=== PATIENT | female | born 1935 | race Caucasian/White ===

== ENCOUNTER 2017-10-24 14:57 | Inpatient (IN) | payer MEDICARE ==
[2017-10-24] MEDS ORDERED: Dextrose 5% in Water 1,000 ML IV PRN (19:43)
[2017-10-24] MEDS ORDERED: Acetaminophen 650 MG Suppository PR PRN (19:43)
[2017-10-24] MEDS ORDERED: Bisacodyl 5 MG TAB PO PRN (19:43)
[2017-10-24] MEDS ORDERED: HumaLOG 300 UNITS/3 ML VIAL SC PRN (19:43)
[2017-10-24] MEDS ORDERED: Acetaminophen 325 MG TAB PO PRN (19:43)
[2017-10-24] MEDS ORDERED: Ondansetron HCl/PF 4 MG/2 ML Vial IVP PRN (19:43)
[2017-10-24] MEDS ORDERED: Dextrose 50% Abboject 50 ML SYRINGE SLOW IVP PRN (19:43)
[2017-10-24] MEDS ORDERED: Ondansetron ODT 4 MG TAB PO PRN (19:43)
[2017-10-24] MEDS: Sodium Chloride 0.9% 1,000 ML IV SCH (20:35)
[2017-10-24] MEDS: Docusate 100 MG CAP PO SCH (20:35)
--- NOTE | 2017-10-24 20:38 | HP ---
PRIMARY CARE PHYSICIAN: Luke Ortiz M.D. CHIEF COMPLAINT: Midepigastric abdominal pain and now sleepiness [facility] HISTORY OF PRESENT ILLNESS: This is an 82-year-old white female with a known history of diabetes, at rial fibrillation with a pacemaker, hypertension, hyperlipidemia who presented to the [facility] Emergency Room with acute pancreatitis a couple weeks ago. The patient was watched in the ospital for about 3 days, had resolution of her pain and has slowly advancing diet. A surgeon was co nsulted there and determined that the patient was at risk with surgery and needed to be cleared by parag r order entry representative to stop her Eliquis. Patient had a recent stroke in August of this year with complet e resolution of her symptoms in a few days, but is on Eliquis for her atrial fibrillation since then. Dr. Kaur is her order entry representative and she was supposed to follow up with Dr. Kaur to get clearance for a scheduled cholecystectomy. Patient, according to family never really gotten better when she went ho co. She did not have pain, but she has always felt like it was something not right in her stomach an d she had very little appetite, is not eaten much or drinking much since and then she had some midepi gastric pain starting last night. It continued this morning, it was fairly severe and so she went to the emergency room in [place]. There her lipase had returned to the 3000 range. She had a repeat C T, which again showed the gallstones and sludge, but no evidence of acute cholecystitis. She had an ultrasound done in the emergency room which showed persistence of stones and sludge in the region of the gallbladder neck, but no thickening, pericholecystic fluid or common bile duct stone identified. The patient was given Phenergan for nausea that she was having and she was having some dry heaves an d then also a dose of Dilaudid. The patient does not like pain medication and does not react well to it. After being given both of these, she became little bit agitated and then became very sleepy and hard to get responses from. She also had some ventricular tachycardia, short nonsustained runs on t he monitor, so she was transferred here for higher level of care. The patient has not had any more r uns of ventricular tachycardia. She has had some hypotension when she arrived. This resolved with a liter of fluid, now she is in the 100 systolic. Still quite sleepy, but starting to respond more pe r the family and I am able to get her to wake up and give me history. Dr. Lujan was consulted from [facility] emergency room, he has not yet seen the patient, but will see them about possible cholecystectomy. PAST MEDICAL HISTORY: 1. Hyperlipidemia. 2. Hypertension. 3. Diabetes mellitus type 2, on oral hypoglycemics. 4. Hypothyroidism. 5. Atrial fibrillation. 6. Carotid stenosis. PAST SURGICAL HISTORY: 1. Rectocele repair. 2. Pacemaker placement. 3. Appendectomy. 4. Biopsy of breath. 5. Tubal ligation. 6. Carotid endarterectomy. 7. D and C. 8. Cataract surgery. SOCIAL HISTORY: The patient denies tobacco or illicit drugs. She only has a rare social alcohol, no thing regular. FAMILY HISTORY: One of her sons has had pancreatitis as well. The patient lives with her , i s accompanying in the emergency room by her 2 daughters and her granddaughter. ALLERGIES: No known drug allergies. CURRENT MEDICATIONS: 1. Carvedilol 6.25 mg in the morning and 12.5 mg at night. 2. Eliquis 5 mg twice a day. 3. Gabapentin 300 mg at night. 4. Levothyroxine 112 mcg p.o. daily. 5. Lovastatin 40 mg p.o. day at night. 6. Metformin 850 mg twice a day. Previously patient was on losartan; however, this was stopped after her first episode of pancreatitis . She was switched to hydrochlorothiazide, but after being nauseated at home, this was stopped as we ll. REVIEW OF SYSTEMS: Constitutional: No fever. She has had some chills, especially after given Dilau did and Phenergan in the emergency room. Eyes: No double vision or blurred vision. ENT: No conges tion, drainage or sore throat. Cardiovascular: No chest pain, no palpitations or racing heart, no s yncope. Pulmonary: No coughing, wheezing or shortness of breath. Gastrointestinal: She has had th e midepigastric pain and was having that again today, it is resolved after the Dilaudid. Still feels uncomfortable in her stomach and was all across the top of her abdomen, it is her only way of descri francis it. No current nausea or vomiting. She did have some nausea and then had some dry heaves earli er this morning before going to the emergency room. No diarrhea or constipation. Genitourinary: No dysuria or hematuria. Musculoskeletal: No muscle aches or joint pains. Skin: No rashes or other lesions. Neurologic: She has not any focal numbness, tingling or weakness. PHYSICAL EXAMINATION: VITAL SIGNS: Blood pressure 102/58, pulse 65, respirations 18, O2 sat 94% on 2 liter nasal cannula, temperature 98.5. GENERAL: This is a well-developed, obese white female who is somnolent but arousable. HEENT: Pupils equal, round, and reactive to light. Extraocular movements intact with some mild hori zontal nystagmus. Oropharynx is clear without lesions, erythema or exudate. NECK: Supple, no lymphadenopathy, no thyroid nodules or enlargement, no JVD. HEART: Regular rate and rhythm, no murmurs, rubs or gallops. LUNGS: Clear to auscultation bilaterally, no wheezes, crackles or rhonchi. ABDOMEN: Soft. Tender to palpation in midepigastric and especially the right upper quadrant. She h as a positive De La Fuente sign. Remainder of the abdomen is uncomfortable, but not painful to palpation. She has active bowel sounds. No organomegaly. EXTREMITIES: No clubbing, cyanosis or edema. SKIN: No rashes or lesions noted. NEUROLOGIC: She has no facial droop and intact reflexes in all extremities and intact strength in al l extremities. PSYCHIATRIC: She is somnolent but arousable, is oriented to person, place, situation and time. PSYCHIATRIC: Appropriate mood and affect. LABORATORY: Reviewed from [facility]. Lipase 3900. The complete metabolic panel was n otable for glucose of 170, creatinine is normal, sodium of 132, chloride 95, bicarbonate 21. Normal bilirubin, normal liver function test, albumin is a little bit low at 3.1. Cardiac marker set negati ve x1. INR is elevated at 1.7. Urinalysis is negative for infection. CBC is notable for white bloo d cell count of 18,000, hemoglobin 11.7, hematocrit 33.8, platelet count 311. She does have a neutro philic predominance of 94%. Blood sugar at the hospital here is 138. ASSESSMENT AND PLAN: 1. Recurrent pancreatitis, likely secondary to gallstones, n.p.o. for now. We will give IV fluids a nd pain control as needed. We will avoid stronger medicines like Dilaudid given patient's bad reacti on to it. 2. Hypotension, likely secondary to Phenergan and Dilaudid as well as probably some underlying volum e depletion. The patient is responding well to IV fluids. We will continue pushing fluids as needed to keep pressure up and replace her volume status. 3. Nonsustained ventricular tachycardia. This is likely secondary to medication effect. We will co nsult Dr. Kaur. The patient will need to have cardiac clearance for surgery as well anyway. 4. Diabetes. We will put the patient on sliding scale. We will hold her metformin for now. 5. Hyperlipidemia. We will resume patient's statin. 6. History of hypertension. The patient currently has low blood pressure. We will hold all of her antihypertensives for now. 7. Gastrointestinal prophylaxis. Put patient on Protonix. 8. Deep venous thrombosis prophylaxis. We will put patient on sequential compression devices while she is in bed. 9. CODE STATUS: I did discuss this with patient and family. She is a FULL CODE. She should she be incapacitated, she states that her daughters would make medical decisions for her that and her daugh ter's name, Tatiana Swain. Her other daughter's name is, Alpa Estrella.
[2017-10-24 20:49] VITALS: BMI 33.7
[2017-10-25 04:39] LABS: #Lymphocytes 0.6 thou/uL (1.20-3.40); #Monocytes 0.8 thou/uL (0.11-0.59); #Neutrophils 13.2 thou/uL (1.40-6.50); %Basophils 0.1 % (0.0-1.0); %Eosinophils 0.2 % (0.0-10.0); %Lymphocytes 4.2 % (21.0-51.0); %Monocytes 5.3 % (0.0-10.0); %Neutrophils 90.2 % (42.0-75.0); Hemoglobin 10.6 g/dL (12.0-16.0); Mean Corpuscular HGB CONC 32.8 g/dL (32.0-36.0); Mean Corpuscular Hemoglobin 31.7 pg (27.0-31.0); Mean Corpuscular Volume 96.7 fl (81.0-99.0); Mean Platelet Volume 6.3 fL (7.4-10.4); Platelet Count 281 thou/uL (130-400); RBC Distribution Width 12.1 % (11.5-14.5); Red Blood Cell (RBC) Count 3.35 mill/uL (4.20-5.40); White Blood Cell (WBC) Count 14.7 thou/uL (4.8-10.8)
[2017-10-25 05:14] LABS: Anion Gap 11 mmol/L (10-20); BUN (Urea Nitrogen) 15 mg/dL (9.8-20.1); Calc. Creatinine Clearance 68 mL/min (70-130); Carbon Dioxide 25 mmol/L (23-31); Chloride 101 mmol/L (98-107); Estimated GFR-MDRD 63; Glucose 150 mg/dL (83-110); Sodium 133 mmol/L (136-145)
[2017-10-25] MEDS: Sodium Chloride 0.9% 1,000 ML IV SCH ×2 (06:12→16:45)
[2017-10-25] MEDS ORDERED: Nitroglycerin 2% Ointment 1 INCH/1 GM Packet TOP SCH ×2 (06:15→14:00)
[2017-10-25] MEDS ORDERED: Levothyroxine Sodium 112 MCG TAB PO SCH (06:15)
[2017-10-25 08:15] LABS: ALT (SGPT) 9 U/L (8-55); AST (SGOT) 15 U/L (5-34); Albumin 2.8 g/dL (3.4-4.8); Alkaline Phosphatase 114 U/L (40-150); Bilirubin, Direct 0.5 mg/dL (0.1-0.3); Bilirubin, Total 0.7 mg/dL (0.2-1.2); Protein, Total 5.7 g/dL (6.0-8.3)
[2017-10-25] MEDS: hydrALAZINE 25 MG TAB PO SCH ×2 (08:52→20:41)
[2017-10-25] MEDS: Docusate 100 MG CAP PO SCH ×2 (08:53→20:42)
--- NOTE | 2017-10-25 09:28 | PDOC.PN ---
- Subjective Encounter Start Date: 10/25/17 Encounter Start Time: 10:50 Subjective: Patient with resolution of sleepiness from Dilaudid. Alert. No -: pain, no nausea, just a "bad" feeling in NICKY and RUQ. - Objective Resuscitation Status: Resuscitation Status FULL:Full Resuscitation MAR Reviewed: Yes Vital Signs & Weight: Vital Signs (12 hours) Temp Pulse Resp BP BP Pulse Ox 10/25/17 08:52 64 220/99 H 10/25/17 05:05 97.6 F 62 20 196/84 H 97 10/25/17 00:00 98.0 F 62 18 166/72 H 93 L Weight Weight 189 lb I&O: 10/24/17 10/25/17 10/26/17 06:59 06:59 06:59 Intake Total 900 Output Total 400 Balance 500 Result Diagrams: 10/25/17 04:03 10/25/17 04:03 Additional Labs: Accuchecks 10/25/17 10/24/17 06:43 20:45 POC Glucose 154 H 177 H Phys Exam - Physical Examination Constitutional: NAD HEENT: moist MMs Respiratory: no wheezing, no rales, no rhonchi, clear to auscultation bilateral Cardiovascular: RRR, no significant murmur Gastrointestinal: soft, positive bowel sounds TTP NICKY and especially RUQ Musculoskeletal: no edema Neurological: non-focal, moves all 4 limbs Psychiatric: normal affect, A&O x 3 Dx/Plan (1) Pancreatitis due to biliary obstruction Code(s): K85.90 - ACUTE PANCREATITIS WITHOUT NECROSIS OR INFECTION, UNSP; K83.1 - OBSTRUCTION OF BILE DUCT Status: Acute Qualifiers: Chronicity: acute Comment: NPO, IV fluids, GI consulted (2) Cholelithiasis Code(s): K80.20 - CALCULUS OF GALLBLADDER W/O CHOLECYSTITIS W/O OBSTRUCTION Status: Chronic Qualifiers: Cholelithiasis location: gallbladder Comment: Dr. Lujan consulted (3) Diabetes mellitus type 2 in obese Code(s): E11.69 - TYPE 2 DIABETES MELLITUS WITH OTHER SPECIFIED COMPLICATION; E66.9 - OBESITY, UNSPECIFIED Status: Chronic (4) Hypertension Code(s): I10 - ESSENTIAL (PRIMARY) HYPERTENSION Status: Chronic Qualifiers: Hypertension type: essential hypertension Qualified Code(s): I10 - Essential (primary) hypertension Comment: Severely elevated this AM, will need to resume home BP meds, IV prn meds until can take po (5) Hyperlipidemia Code(s): E78.5 - HYPERLIPIDEMIA, UNSPECIFIED Status: Chronic Qualifiers: Hyperlipidemia type: unspecified Qualified Code(s): E78.5 - Hyperlipidemia , unspecified (6) Hypothyroidism Code(s): E03.9 - HYPOTHYROIDISM, UNSPECIFIED Status: Chronic (7) Atrial fibrillation Code(s): I48.91 - UNSPECIFIED ATRIAL FIBRILLATION Status: Chronic Qualifiers: Atrial fibrillation type: chronic Qualified Code(s): I48.2 - Chronic atrial fibrillation Comment: on Eliquis 5mg BID, will need to hold before any surgery (8) CVA (cerebral vascular accident) Code(s): I63.9 - CEREBRAL INFARCTION, UNSPECIFIED Status: Chronic Qualifiers: CVA mechanism: embolism Comment: 08/2017, no residual - Plan cont current plan of care, PT/OT, DVT proph w/lovenox * . - Discharge Day Encounter end time: 11:00
[2017-10-25] MEDS ORDERED: hydrALAZINE 20 MG/ML VIAL SLOW IVP PRN (09:35)
[2017-10-25] MEDS ORDERED: Labetalol HCl 100 MG/20 ML VIAL SLOW IVP PRN (09:35)
[2017-10-25] MEDS ORDERED: Enoxaparin Sodium 40 MG/0.4 ML SYRINGE SC SCH (10:00)
--- NOTE | 2017-10-25 14:13 | CON ---
DATE OF CONSULTATION: 10/25/2017 CHIEF COMPLAINT: Right upper quadrant pain. HISTORY: This is an 82-year-old female who on 10/11 had presented with severe right upper quadrant p ain to the [facility] ER. She was admitted with biliary pancreatitis. She was placed at bowel rest and then discharged feeling better. Then she reports that yesterday she had a repeat episode of the pain and it became much worse, so she went back to the ER and there she had an episode of ventri cular tachycardia after being given some pain medicine and antiemetics. They were able to resuscitat e her and they transferred her here, but on the way here, she had an episode of hypotension. PAST MEDICAL HISTORY: Significant for recent cerebrovascular accident on 08/30/2017. She was aphasi c and had right-sided weakness that has resolved. She has hypertension, diabetes, and atrial fibrill ation as well as carotid disease. PAST SURGICAL HISTORY: She has had a pacemaker. She has had a colonoscopy, appendectomy, breast bio psy, bilateral tubal ligation. She has had a bilateral carotid endarterectomy, D and C, cataract arturo malorie. MEDICATIONS: Carvedilol, Eliquis, gabapentin, levothyroxine, lovastatin, metformin. SOCIAL HISTORY: No tobacco, social alcohol. FAMILY HISTORY: Pancreatitis. ALLERGIES: She has no known drug allergies. PHYSICAL EXAMINATION: VITAL SIGNS: Temperature 97.9, pulse 73, blood pressure 205/96. GENERAL: She is awake and alert. She says the pain is little better than it was yesterday, but she is still having quite a bit of discomfort. There is no obvious jaundice. LUNGS: Clear. HEART: Regular rate and rhythm. ABDOMEN: Mildly tender in the right upper quadrant, no palpable mass. EXTREMITIES: Unremarkable. LABORATORY AND X-RAY FINDINGS: Her white count is 14,000, H and H 10 and 32, platelet count 282. El ectrolytes show an elevated glucose at 150. Her total bilirubin of 0.7. LFTs are normal, but her am ylase is 747. She had a CT scan showing pancreatitis. She had an ultrasound. This is reported in [facility] ER notes, so I do not have direct reports of gallstones from the hospital in [place]. ASSESSMENT: Biliary pancreatitis, not cleared for surgery at this time with multiple other medical p benny. She has been off her Eliquis for a day and a half. PLAN: Cardiac clearance. Recommend GI consultation followed by laparoscopic cholecystectomy.
--- NOTE | 2017-10-25 16:05 | CON ---
DATE OF ADMISSION: 10/24/2017 DATE OF CONSULTATION: 10/25/2017 INDICATION FOR CONSULTATION: An 82-year-old female who needs to undergo surgical procedure, most lik lynn for cholecystectomy. We were asked to see her due to her history of intermittent atrial fibrilla tion, history of pacemaker insertion, history of diastolic dysfunction. HISTORY OF PRESENT ILLNESS: This very pleasant 82-year-old female who had a history in the past of a trial fibrillation. She had decided not to take anticoagulation and unfortunately in August, she de veloped cerebrovascular accident with aphasia and right-sided weakness. She was seen at [facility] in [place] and was given TPA and suffered only minimal damage. The brain CT cannot confirm t he origin of the stroke. She has a pacemaker and she could not undergo an MRI. Her echocardiogram a t that time showed an ejection fraction around 20%, but this did improve and today echocardiogram brandyn ws ejection fraction of 50%-55% with mild mitral and tricuspid, aortic and pulmonary valve regurgitat ion. She does have evidence of diastolic dysfunction. We have interrogated the pacemaker which show ed less than 1% atrial fibrillation burden. Her last atrial fibrillation was on 09/12/2017. She als o was noted on the evaluation of the pacemaker as of yesterday of 28 seconds. The longest was 28 sec onds of nonsustained ventricular tachycardia. This occurred yesterday morning around 11:30-11:40 in the morning. The majority of time she has atrial pacing and ventricular pacing actually about 98.7% of the time. She did have several frequent episodes of the nonsustained ventricular tachycardia of t hese was between 11:36 and 11:40 in the morning in a very short period of time and she has not had an y other episodes and she has had no significant episodes noted prior to this or since that time. She denied any chest discomfort. She has had no history of coronary artery disease in the past. She callahan s not undergone cardiac catheterization. Last time when she was seen in the office was 08/2017 and s he was not having any complaints of orthopnea, PND or dyspnea on exertion or lower extremity edema. She did not have any palpitations or syncope and was doing quite well at that time. PAST MEDICAL HISTORY: Significant for dyslipidemia, history of hypertension, she has had a TIA, slee p apnea, bilateral carotid endarterectomies, bilateral tubal ligation. She has diverticulitis. She has had a thyroid goiter. She has hypothyroidism. She has type 2 diabetes. She has undergone pacem albertina insertion. She has a history of cataract surgery. She has had a history of a CVA. ALLERGIES: None. PRESENT MEDICATIONS PRIOR TO ADMISSION: Included garlic capsules, fish oil, vitamin D3, lovastatin, Centrum Silver vitamins, Tirosint, gabapentin, metformin, cinnamon, CoQ10, aspirin 81 mg a day, amiod arone 200 mg 1 b.i.d., Coreg 6.25 mg b.i.d. FAMILY HISTORY: Noncontributory. REVIEW OF SYSTEMS: Twelve point review of systems. She denied any new HEENT complaints, no visual c hanges. Respiratory: No pulmonary complaints such as asthma, emphysema, bronchitis or significant s hortness of breath or dyspnea on exertion. Cardiovascular: She had no cardiac complaints such as ch est pain, shortness of breath, lower extremity edema, palpitations or chest pain. Gastrointestinal: She had no nausea, vomiting or diarrhea. She did complain of abdominal pain. This is what brought her to the emergency room on two different occasions now and appears that she has some cholecystitis and now also developed pancreatitis. Genitourinary: She denies any dysuria, polyuria, or hematuria. Musculoskeletal: No significant lower extremity edema, swelling, or claudication. Neurological: No history of seizures or syncope. PHYSICAL EXAMINATION: GENERAL: Reveals a well-developed, well-nourished female who is in no acute distress. She is alert and oriented at this time. VITAL SIGNS: Stable except for blood pressure. She is somewhat hypertensive. Her blood pressure wi ll need to be managed. Last checked was 205/96. She has been started on hydralazine, but has not be en given her oral medications. We will need to adjust the medications in order to decrease the blood pressure. Heart rate in the 70s, which shows 100% AV pacing. She is afebrile, respiratory rate is 20. HEENT: Shows the head to be normocephalic and atraumatic. She has well healed surgical incision of the carotid areas. I did not hear any significant bruits. CHEST: Clear to auscultation without rales, rhonchi or wheezing. CARDIOVASCULAR: Exam reveals a regular rate and rhythm. She has a normal S1, S2. No significant S3 , S4. There were no significant murmurs, heaves, thrills, bruits or rubs. She has well healed surgi paramjit incision over the left interventricular area after pacemaker insertion. EXTREMITIES: Show no clubbing, cyanosis or edema. Pedal pulses are present. NEUROLOGIC: The patient appears to be fully intact. I cannot elicit any gross focal motor deficits. SKIN: Warm and dry. LABORATORY DATA: Shows WBC of 14.7, hemoglobin was 10.6, platelet count was 281. Potassium is 4.1, sodium is 133, blood sugar is 153, BUN is 15 with a creatinine of 0.86. Her AST was 15 with an amyla se of 747, total bilirubin was 0.7. IMPRESSION: 1. Acute cholecystitis with pancreatitis, most likely she will need to undergo a cholecystectomy and possibly ERCP. At this time, the cardiac status despite having some short runs of nonsustained vent ricular tachycardia, most likely is reasonable to undergo the procedure. She most likely has mild to moderate risk for any acute cardiac events during the procedure. She has not had a recent stress te st, but echocardiogram shows a normal ejection fraction and she has had no significant complaints rec ently from a cardiac standpoint. Her last stress test was many years ago. 2. History of most likely diastolic dysfunction with restrictive type pattern and a decreased ejecti on fraction in the past and this appears to be stable at this time with ejection fraction at least 50 %-55% today by echocardiogram. 3. History of pacemaker insertion due to sick sinus syndrome. This remains stable. The pacemaker f unction is normal. 4. History of intermittent atrial fibrillation. Her last atrial fibrillation was 09/12/2017. She h as been on Eliquis since that time to decrease the risk of a cerebrovascular accident which she suffe red back in August. At this time, we can certainly hold the anticoagulation. It is for the surgica l procedures and then can resume these after the procedure as soon as feasible. 5. Nonsustained ventricular tachycardia. She certainly may have underlying coronary artery disease, but does not give any other symptoms of having coronary artery disease at this time and I do not bel ieve I will benefit the patient to undergo a stress test at this time since she has minimal symptoms prior to undergoing the surgical procedure. If this were a major vascular procedure or retroperitone al type procedure, or major alone procedure, then perhaps a stress test would be in order if at all p ossible prior to the procedure, but for a cholecystectomy and possible ERCP, I do not believe this wi ll be indicated at this time.
[2017-10-25] MEDS: Carvedilol 6.25 MG TAB PO SCH ×2 (16:41→20:42)
[2017-10-25] MEDS: Piperacillin/Tazobactam 3.375 GM in Sodium Chloride 0.9% 100 ML IVPB SCH ×2 (16:45→20:41)
[2017-10-25] MEDS: cloNIDine 0.1 MG TAB PO PRN (19:18)
[2017-10-25] MEDS: Nitroglycerin 2% Ointment 1 INCH/1 GM Packet TOP SCH (20:42)
[2017-10-25] MEDS: Atorvastatin Calcium 10 MG TAB PO SCH (20:42)
--- NOTE | 2017-10-25 21:29 | CON ---
DATE OF CONSULTATION: 10/25/2017 HISTORY OF PRESENT ILLNESS: This is an 82-year-old female who was in her normal state of h ealth until a week to 10 days prior to admission when she developed a severe abdominal pain. She kitty t to [facility] in [place] and was diagnosed with pancreatitis. She was hospitalized for 3 days and reportedly as far as her pancreatic numbers normalized, she felt better and was sent home . Over the subsequent week, she still was not feeling normally and then she developed another episod e of severe pain. She did have nausea, vomiting during these painful episodes. She returned to the emergency room and there she was diagnosed with recurrent pancreatitis and with lipase levels in the 3900 range. She was transferred here. She did have an episode of V-tach during this time period. O n 10/11/2017, the patient underwent a CT scan which showed mild acute uncomplicated pancreatitis, whi ch is likely secondary to gallstones. Gallstones were in the gallbladder neck. Ultrasound showed no ductal dilatation, common bile duct to 2.1 mm. No common duct stone is seen. Gallbladder is mildly distended with debris and stone in the gallbladder neck. The patient is presently pain free. She d enies any nausea or vomiting. She is actually hungry. PAST MEDICAL HISTORY: Significant for hyperlipidemia; hypertension; diabetes mellitus; cerebrovascul ar accident; hypothyroidism; atrial fibrillation, on Eliquis. PAST SURGICAL HISTORY: Includes rectocele repair, pacemaker placement for bradycardia, appendectomy, tubal ligation, bilateral carotid endarterectomies, cataract surgery. SOCIAL HISTORY: She does not smoke or drink. FAMILY HISTORY: Negative for GI or liver disease. ALLERGIES: No known allergies. MEDICATIONS: Prior to admission include hydralazine 25 mg p.o. b.i.d., Lovastatin 40 mg p.o. daily, metformin 850 mg p.o. b.i.d., Coreg 6.25 mg p.o. t.i.d., levothyroxine 112 mcg p.o. daily, gabapentin 300 mg p.o. daily, Eliquis 5 mg p.o. b.i.d. REVIEW OF SYSTEMS: Constitutional: No fever or chills. No weight loss. Eyes: No blurred vision, double vision. ENT: No sore throat or earaches. Cardiovascular: No chest pain or palpitation. Pu lmonary: No shortness of breath, cough, or wheezing. Gastrointestinal: See above. Genitourinary: No hematuria or dysuria. Musculoskeletal: No joint pain or muscle weakness. Neurologic: No numbn ess or seizure activity. Skin: No rashes. PHYSICAL EXAMINATION: VITAL SIGNS: Temperature 98.9, pulse 60, respiratory rate 20, blood pressure 226/94. HEENT: Unremarkable. NECK: Supple. CHEST: Clear. CARDIOVASCULAR: Regular rate and rhythm without murmurs or gallops. ABDOMEN: Soft, nontender, without organomegaly or masses. Bowel sounds are present and normoactive. RECTAL: Deferred. LABORATORY: Shows a white blood cell count of 14.7, hematocrit of 32.4, hemoglobin 10.6. Chemistry shows sodium 133, glucose 150, total bilirubin 0.7, AST and ALT are normal, alkaline phosphatase 114, amylase of 747, and lipase of 889. ASSESSMENT: 1. Probable biliary pancreatitis. 2. Cholelithiasis in the gallbladder neck. 3. Atrial fibrillation, on Eliquis. 4. Episode of ventricular tachycardia. RECOMMENDATIONS: 1. At this time, I would proceed with cholecystectomy. I would not at this time perform ERCP parulaus e the patient's LFTs are normal. She has a very small duct. 2. We will discuss with Dr. Kaur.
[2017-10-26] MEDS: Piperacillin/Tazobactam 3.375 GM in Sodium Chloride 0.9% 100 ML IVPB SCH ×4 (04:10→20:16)
[2017-10-26 05:19] LABS: Anion Gap 15 mmol/L (10-20); BUN (Urea Nitrogen) 17 mg/dL (9.8-20.1); Calc. Creatinine Clearance 71 mL/min (70-130); Calcium 8.7 mg/dL (7.8-10.44); Carbon Dioxide 19 mmol/L (23-31); Chloride 103 mmol/L (98-107); Estimated GFR-MDRD 68; Glucose 148 mg/dL (83-110); Lipase 559 U/L (8-78); Potassium 4.3 mmol/L (3.5-5.1); Sodium 133 mmol/L (136-145)
[2017-10-26 05:49] LABS: Band 30 % (5-11); Hemoglobin 9.8 g/dL (12.0-16.0); Lymphocytes 3 % (21-51); MDiff Complete? YES; Mean Corpuscular Hemoglobin 31.8 pg (27.0-31.0); Mean Corpuscular Volume 96.5 fl (81.0-99.0); Mean Platelet Volume 6.5 fL (7.4-10.4); Monocytes 2 % (0-10); Neutrophil 65 % (42-75); Platelet Count 293 thou/uL (130-400); RBC Distribution Width 12.1 % (11.5-14.5); Red Blood Cell (RBC) Count 3.09 mill/uL (4.20-5.40); White Blood Cell (WBC) Count 13.4 thou/uL (4.8-10.8)
[2017-10-26] MEDS: Sodium Chloride 0.9% 1,000 ML IV SCH ×2 (05:49→19:30)
[2017-10-26] MEDS: Nitroglycerin 2% Ointment 1 INCH/1 GM Packet TOP SCH ×3 (05:50→20:17)
[2017-10-26] MEDS: Levothyroxine Sodium 112 MCG TAB PO SCH (05:50)
[2017-10-26] MEDS: hydrALAZINE 25 MG TAB PO SCH ×2 (08:36→20:16)
[2017-10-26] MEDS: Carvedilol 6.25 MG TAB PO SCH ×3 (08:37→20:16)
[2017-10-26] MEDS: Gabapentin 300 MG CAP PO SCH (08:38)
[2017-10-26] MEDS: Docusate 100 MG CAP PO SCH ×2 (08:45→20:26)
--- NOTE | 2017-10-26 10:04 | PDOC.PN ---
- Subjective Encounter Start Date: 10/26/17 Encounter Start Time: 19:00 Subjective: Patient back from lap erum. Sleepy. No pain currently. No SOB. No N /V. - Objective Resuscitation Status: Resuscitation Status FULL:Full Resuscitation MAR Reviewed: Yes Vital Signs & Weight: Vital Signs (12 hours) Temp Pulse Resp BP BP Pulse Ox 10/26/17 08:36 63 208/90 H 10/26/17 04:14 97.4 F L 67 16 168/72 H 90 L 10/26/17 00:00 99.4 F 67 17 152/70 H 93 L Weight Weight 191 lb I&O: 10/25/17 10/26/17 10/27/17 06:59 06:59 06:59 Intake Total 900 1575 Output Total 400 500 Balance 500 1075 Result Diagrams: 10/26/17 04:12 10/26/17 04:12 Additional Labs: Accuchecks 10/26/17 10/25/17 10/25/17 05:51 20:37 16:03 POC Glucose 158 H 153 H 157 H 10/25/17 11:59 POC Glucose 153 H Phys Exam - Physical Examination Constitutional: NAD HEENT: moist MMs Respiratory: no wheezing, no rales, no rhonchi, clear to auscultation bilateral Cardiovascular: RRR, no significant murmur Gastrointestinal: soft, no distention, positive bowel sounds Neurological: non-focal, moves all 4 limbs Psychiatric: normal affect, A&O x 3 Dx/Plan (1) Pancreatitis due to biliary obstruction Code(s): K85.90 - ACUTE PANCREATITIS WITHOUT NECROSIS OR INFECTION, UNSP; K83.1 - OBSTRUCTION OF BILE DUCT Status: Acute Qualifiers: Chronicity: acute Comment: NPO, IV fluids, question of cancer on lap erum (2) Cholelithiasis Code(s): K80.20 - CALCULUS OF GALLBLADDER W/O CHOLECYSTITIS W/O OBSTRUCTION Status: Chronic Qualifiers: Cholelithiasis location: gallbladder Comment: s/p Lap Erum by Dr. Zavala 10/26/2017 (3) Diabetes mellitus type 2 in obese Code(s): E11.69 - TYPE 2 DIABETES MELLITUS WITH OTHER SPECIFIED COMPLICATION; E66.9 - OBESITY, UNSPECIFIED Status: Chronic (4) Hypertension Code(s): I10 - ESSENTIAL (PRIMARY) HYPERTENSION Status: Chronic Qualifiers: Hypertension type: essential hypertension Qualified Code(s): I10 - Essential (primary) hypertension Comment: Severely elevated this AM, will need to resume home BP meds, IV prn meds until can take po (5) Hyperlipidemia Code(s): E78.5 - HYPERLIPIDEMIA, UNSPECIFIED Status: Chronic Qualifiers: Hyperlipidemia type: unspecified Qualified Code(s): E78.5 - Hyperlipidemia , unspecified (6) Hypothyroidism Code(s): E03.9 - HYPOTHYROIDISM, UNSPECIFIED Status: Chronic (7) Atrial fibrillation Code(s): I48.91 - UNSPECIFIED ATRIAL FIBRILLATION Status: Chronic Qualifiers: Atrial fibrillation type: chronic Qualified Code(s): I48.2 - Chronic atrial fibrillation Comment: on Eliquis 5mg BID, will need to hold before any surgery (8) CVA (cerebral vascular accident) Code(s): I63.9 - CEREBRAL INFARCTION, UNSPECIFIED Status: Chronic Qualifiers: CVA mechanism: embolism Comment: 08/2017, no residual - Plan cont current plan of care, PT/OT, DVT proph w/SCDs CT abdomen in AM to better evaluate pancreas for possible -: cancer. * . - Discharge Day Encounter end time: 19:20
[2017-10-26] MEDS: cloNIDine 0.1 MG TAB PO PRN (10:40)
[2017-10-26] MEDS: Enoxaparin Sodium 40 MG/0.4 ML SYRINGE SC SCH (10:55)
--- NOTE | 2017-10-26 12:35 | PRG ---
DATE OF SERVICE: 10/26/2017 SUBJECTIVE: The patient is without any pain, no nausea or vomiting. OBJECTIVE: VITAL SIGNS: Temperature 98.9, pulse 63, blood pressure 180/72, respiratory rate 16. CHEST: Clear. CARDIOVASCULAR: Regular rate and rhythm. ABDOMEN: Benign. LABORATORY DATA: Shows a white blood cell count 13.4, hemoglobin 9.8, hematocrit 29.8. Chemistries show a sodium 133, CO2 of 19, glucose 148, lipase 559. ASSESSMENT: Biliary pancreatitis. RECOMMENDATIONS: Proceed with cholecystectomy with intraoperative cholangiogram.
[2017-10-26] MEDS ORDERED: Midazolam HCl 2 mg/2 ml Vial ONE (13:03)
[2017-10-26] MEDS ORDERED: Fentanyl 250 MCG/5 ML VIAL ONE (13:03)
[2017-10-26] MEDS ORDERED: HYDROmorphone 0.5 MG/0.5 ML SYRINGE ONE (13:03)
[2017-10-26] MEDS ORDERED: Iothalamate Meglumine 60% 50 ML VIAL FS ONE (13:48)
[2017-10-26] MEDS ORDERED: Bupivacaine/Epinephrine 0.25% 30 ML VIAL ONE (13:48)
[2017-10-26] MEDS ORDERED: Lidocaine 1% PF 5 ML VIAL ONE (15:17)
[2017-10-26] MEDS ORDERED: Ondansetron HCl/PF 4 MG/2 ML Vial ONE (15:17)
[2017-10-26] MEDS ORDERED: Propofol 200 MG/20 ML VIAL ONE (15:17)
[2017-10-26] MEDS ORDERED: ePHEDrine/0.9% NaCl/PF SYRINGE 50 mg/10 ml ONE (15:17)
[2017-10-26] MEDS ORDERED: PHENYLEPHRINE-NS 100 MCG/ML 10 ML SYRINGE ONE (15:17)
[2017-10-26] MEDS ORDERED: SUGAMMADEX SODIUM 200 MG/2 ML VIAL ONE (15:47)
[2017-10-26] MEDS ORDERED: Promethazine HCl 25 MG/ML VIAL IM PRN (16:25)
[2017-10-26] MEDS ORDERED: Promethazine HCl 25 MG/ML VIAL SLOW IVP PRN (16:25)
[2017-10-26] MEDS ORDERED: Ondansetron HCl/PF 4 MG/2 ML Vial IVP PRN (16:25)
--- NOTE | 2017-10-26 16:34 | OP ---
DATE OF OPERATION: 10/26/2017 PREOPERATIVE DIAGNOSES: 1. Acute cholecystitis. 2. Resolved acute gallstone pancreatitis. POSTOPERATIVE DIAGNOSES: 1. Acute cholecystitis. 2. Resolved acute gallstone pancreatitis. 3. Abnormal architecture of the pancreatic head and duodenum. PROCEDURES PERFORMED: Laparoscopic cholecystectomy with intraoperative cholangiogram. SURGEON: Brain Zavala D.O. ANESTHESIA: General endotracheal. ESTIMATED BLOOD LOSS: 10 mL FLUIDS GIVEN: 1500 mL crystalloids. SPONGE AND INSTRUMENT COUNT: Certified as correct x2. COMPLICATIONS: None apparent. INDICATIONS FOR PROCEDURE: This is an 82-year-old woman, who presented with malaise. She is complaining of abdominal pain. Clinical and radiographic examination was consistent with acute pa ncreatitis, which was suspected to be gallstone pancreatitis. Pancreatitis has since resolved. The patient had no abdominal pain this morning. ERCP was initially proposed; however, due to resolution of abdominal pain and normal LFTs, decision was made therefore to bring the patient to the operating room for laparoscopic cholecystectomy with intraoperative cholangiogram. FINDINGS: Findings today are consistent with a distended gallbladder in the usual anatomic location, completely encased by omental adhesions. Additional findings included fullness and hardness of the pancreatic head and duodenum. Additionally, a cholangiogram reveals a sharp cutoff on the ampulla; h owever, the pancreatic duct filled with contrast. We did not visualize contrast into the small bowel . DESCRIPTION OF PROCEDURE: Informed consent obtained from the patient, who was brought to the operati ng room and placed in supine position. Following general anesthesia, Scruggs catheter inserted and augusto lu at bedside drain. Abdomen was sterilely prepped and draped in usual fashion. Skin below the umb ilicus was infiltrated with 0.25% Marcaine with epinephrine. A small curvilinear infraumbilical inci gema is made using 11 scalpel. Umbilical stalk was grasped with Margareth and elevated. Veress needle was inserted through this incision and placed in the peritoneal cavity, through which the abdomen was insufflated with 3 liters of CO2 gas. Intraabdominal pressure was noted at 2 mmHg. Following abdom inal insufflation, Veress needle was removed, and a 5 mm trocar inserted using the Visiport under lap aroscopy. Laparoscopy confirmed proper placement of the port, no injuries to underlying structures. Additional laparoscopy confirmed gallbladder in the usual anatomic location, completely encased by o mental adhesions. Under laparoscopy, a 12 mm epigastric and two 5 mm right lateral subcostal ports w ere placed after the overlying skin was infiltrated with 0.25% Marcaine with epinephrine, and appropr iate incisions made. The patient is placed in the reverse Trendelenburg position, rotated to her lef t. I introduced the [place] dissector with cautery, using this to take down omental adhesions to ex pose the fundus of the gallbladder. I attempted to grasp the fundus of the gallbladder with a Fly Fishing Hunteri ge grasper from the right lateral subcostal port. This gallbladder was markedly distended and tense and difficult to grasp. We then performed a cholecystotomy at the fundus of the gallbladder using a suction cautery catheter. Excess bile was evacuated. I then applied a Prestige grasper at the fundu s of the gallbladder, which was elevated cephalad. Omental adhesions were then taken down from the r emainder of the gallbladder. A second Prestige grasper was introduced through the right medial subco stal port grasping the Gamez's pouch, which was retracted laterally. An anterior coursing cystic a rtery was dissected free from surrounding structures and divided between clips. Two clips applied pr oximally and 1 clip at the junction of the cystic artery and gallbladder. The cystic duct was dissec idalmis free from surrounding structures. I applied one clip at the junction of the cystic duct and gall bladder. I then introduced a cholangiocatheter in the right upper quadrant. I used an EndoShears to perform a cystotomy of the cystic duct. This was proximal to the securing clip. I inserted the cho langiocatheter after it has been flushed with saline. Catheter was inserted into the cystic ductal l umen and secured with a single clip. Cholangiogram was performed with a total of 40 mL of Conray con trast dye. Cholangiogram did not reveal any filling defects suggestive of stone. However, there is a sharp cutoff at the ampulla. The pancreatic duct, however, was filled. I did not see contrast int o the small bowel. Total fluoroscopy time was 39 seconds. The securing clip was removed, and the ca theter was removed from the abdominal cavity. The cystic duct was then divided between clips, applyi ng two clips proximally. The gallbladder surface removed from the liver bed using cautery and delive red off the abdominal cavity using an EndoCatch. Operative site was copiously irrigated clear with s sheldon. All clips remain in place. I then explored the operative site. The stomach is of normal con tour on palpation with a grasper; however, the pylorus including the proximal duodenum felt hard to t ouch with a grasper. The pancreatic head appeared to be full in the area. This was obviously a not abnormal architecture. Additional laparoscopy was terminated at this time. Fascia of the epigastric port site was closed using 0 Vicryl suture and Endo closure device under laparoscopy. Abdomen was d esufflated. All ports and instruments removed and accounted for. Skin incisions were closed using 4 -0 Monocryl suture in subcuticular fashion. Dermabond was applied over the incisions. The patient t olerated this operation without any apparent complication and was returned to the recovery room in sa tisfactory condition.
[2017-10-26 16:50] LABS: Bilirubin Moderate (Negative); Blood, Urine Negative (Negative); Clarity CLOUDY (Clear); Glucose, Urine (Dipstick) Negative (Negative); Leukocyte Negative (Negative); Nitrite Negative (Negative); Protein, Urine (Dipstick) 30 mg/dL (Neg-Trace)
[2017-10-26 16:51] LABS: Pathc Cast-AUWi Flag 1.76 (0-2.49); RBC/HPF 0-3 HPF (0-3)
[2017-10-26 16:55] LABS: Yeast-AUWi Flag 492.4 (0-25.0)
[2017-10-26 17:03] LABS: Bacteria/HPF 1+ HPF (None Seen); Hyaline Casts/LPF 0-3 HYALINE CAST LPF (0-3 Hyaline); Renal Epithelial None Seen HPF (0-3); Transitional Epithelial 0-3 HPF (0-3); Yeast-All Forms 2+ HPF (None Seen)
[2017-10-26] MEDS ORDERED: Acetaminophen 1,000 MG in Premix Bag 1 BAG IVPB SCH ×4 (18:00)
[2017-10-26] MEDS: Atorvastatin Calcium 10 MG TAB PO SCH (20:16)
--- NOTE | 2017-10-26 21:14 | RAD ---
INTRAOPERATIVE CHOLANGIOGRAM: 10/26/17 COMPARISON: None. HISTORY: Intraoperative cholangiogram. FINDINGS: There is contrast media within the cystic duct and the common bile duct. The common bile duct appears dilated. The common bile duct demonstrates abrupt cut off distally with no filling to the level of t he ampulla of Vater. There appears to be filling of the pancreatic duct which is irregular. IMPRESSION: The common bile duct is not completely filled distally suggesting abrupt cut off on the basis of poss ible pancreatic mass lesion. Opacified pancreatic duct demonstrates diffuse irregularity. Recommend C T examination of the abdomen for further assessment of possible mass lesion in the region of the panc reatic head. Dr Sandoval discussed these findings with Dr. Zavala on 10/26/2017. POS: [facility]
[2017-10-26] MEDS: Acetaminophen 1,000 MG in Premix Bag 1 BAG IVPB SCH (23:29)
--- NOTE | 2017-10-26 23:33 | PRG ---
DATE OF SERVICE: 10/26/2017 SUBJECTIVE: This is an 82-year-old female, who is postop day 0, status post laparoscopic cholecystec azucena and IOC. The patient is being evaluated postoperatively. Upon my evaluation, she is resting in bed in no acute distress and vocalizes no complaint. She is tolerating a clear liquid diet. Pain i s controlled. OBJECTIVE: VITAL SIGNS: Reviewed. The patient is hypertensive, but otherwise stable. Breathing is nonlabored, resting in bed, in no acute distress. ABDOMEN: Soft, nontender, nondistended. NEUROLOGIC: No focal deficit is noted. ASSESSMENT AND PLAN: Postoperative day 0 status post laparoscopic cholecystectomy with filling abnor mality during intraoperative cholangiography as well as the finding of abnormal architecture of the p ancreatic head and duodenum. Patient is tolerating her clear liquid diet. We will follow up postope rative pathology. Supportive care overnight as ordered. Continue to monitor.
[2017-10-27] MEDS: Piperacillin/Tazobactam 3.375 GM in Sodium Chloride 0.9% 100 ML IVPB SCH ×4 (04:08→21:07)
[2017-10-27 04:52] LABS: #Eosinphils 0.1 thou/uL (0.0-0.7); #Lymphocytes 0.6 thou/uL (1.20-3.40); #Monocytes 0.5 thou/uL (0.11-0.59); #Neutrophils 8.3 thou/uL (1.40-6.50); %Eosinophils 0.8 % (0.0-10.0); %Lymphocytes 6.3 % (21.0-51.0); %Monocytes 5.2 % (0.0-10.0); %Neutrophils 87.6 % (42.0-75.0); Mean Corpuscular HGB CONC 32.9 g/dL (32.0-36.0); Mean Corpuscular Hemoglobin 32.2 pg (27.0-31.0); Mean Corpuscular Volume 97.9 fl (81.0-99.0); Mean Platelet Volume 6.4 fL (7.4-10.4); Platelet Count 279 thou/uL (130-400); RBC Distribution Width 12.3 % (11.5-14.5); Red Blood Cell (RBC) Count 3.09 mill/uL (4.20-5.40); White Blood Cell (WBC) Count 9.4 thou/uL (4.8-10.8)
[2017-10-27 05:15] LABS: Anion Gap 13 mmol/L (10-20); BUN (Urea Nitrogen) 23 mg/dL (9.8-20.1); Calc. Creatinine Clearance 57 mL/min (70-130); Calcium 8.6 mg/dL (7.8-10.44); Carbon Dioxide 18 mmol/L (23-31); Chloride 105 mmol/L (98-107); Estimated GFR-MDRD 52; Glucose 163 mg/dL (83-110); Lipase 89 U/L (8-78); Magnesium 1.6 mg/dL (1.6-2.6); Phosphorus 3.9 mg/dL (2.3-4.7); Potassium 3.8 mmol/L (3.5-5.1); Sodium 132 mmol/L (136-145)
[2017-10-27 05:19] LABS: ALT (SGPT) 11 U/L (8-55); AST (SGOT) 25 U/L (5-34); Albumin 2.6 g/dL (3.4-4.8); Alkaline Phosphatase 191 U/L (40-150); Bilirubin, Direct 0.3 mg/dL (0.1-0.3); Bilirubin, Total 0.7 mg/dL (0.2-1.2); Protein, Total 5.5 g/dL (6.0-8.3)
[2017-10-27] MEDS: Levothyroxine Sodium 112 MCG TAB PO SCH (05:45)
[2017-10-27] MEDS: Nitroglycerin 2% Ointment 1 INCH/1 GM Packet TOP SCH ×3 (05:45→21:10)
[2017-10-27] MEDS: Acetaminophen 1,000 MG in Premix Bag 1 BAG IVPB SCH ×3 (05:47→17:18)
[2017-10-27] MEDS: hydrALAZINE 25 MG TAB PO SCH ×2 (09:24→21:08)
[2017-10-27] MEDS: Gabapentin 300 MG CAP PO SCH (09:29)
[2017-10-27] MEDS: Carvedilol 6.25 MG TAB PO SCH ×3 (09:30→21:08)
[2017-10-27] MEDS: Sodium Chloride 0.9% 1,000 ML IV SCH ×2 (09:34→13:48)
[2017-10-27] MEDS: Docusate 100 MG CAP PO SCH ×2 (10:41→21:08)
[2017-10-27] MEDS: Enoxaparin Sodium 40 MG/0.4 ML SYRINGE SC SCH ×2 (10:41→12:24)
--- NOTE | 2017-10-27 10:57 | CT ---
ABDOMEN AND PELVIC CT SCAN WITH AND WITHOUT IV CONTRAST: HISTORY: An 82-year-old female with a history of recent status post cholecystectomy with imaging suggesting a pancreatic mass. COMPARISON: Intraoperative cholangiogram 10/26/17. FINDINGS: Small bilateral pleural effusions and bilateral lower lobe parenchymal changes worse on the right cole e, evidence for some right lower lobe partial atelectasis. There is a small hiatal hernia. There is some fluid density within the gallbladder fossa and a small amount of perihepatic fluid and some fat stranding in the right upper quadrant, evidence for recent cholecystectomy. There is a very large p oorly circumscribed mass replacing the region of the head of the pancreas. This mass measures approx imately 7.3 x 8.6 cm in AP and transverse dimensions. There is some heterogeneous enhancement, parti cularly of the periphery of this mass, with some scattered enhancement within the mass itself. There are some patchy areas of minimal fatty density within this mass. There is also one focus that is sl ightly larger than 1 cm in diameter which could represent a small hemorrhagic focus within this mass. There is no significant intrahepatic ductal dilatation. The body and tail of the pancreas appear u nremarkable. No evidence for pancreatic ductal dilatation. There are some small primarily left-side d renal cysts including some parapelvic cysts. Very minimal free fluid in the pelvis. A 1 cm diamet er minimally enlarged lymph node noted just cranial to the hepatic artery origin off the celiac arter y. Several small peripancreatic lymph nodes up to 0.8 cm in short axis. IMPRESSION: Very large pancreatic head mass with scattered areas of abnormal enhancement more so in the periphery than in the central portion of the mass with some scattered areas of minimal nodular fat density wit hin the mass and at least one small hyperdense nodular focus, probably a small focus of hemorrhage wi thin the mass. Recent postoperative laparoscopic cholecystectomy changes. Small left renal cyst. T his mass would not be amenable to percutaneous biopsy. POS: [facility]
--- NOTE | 2017-10-27 10:59 | PDOC.PN ---
- Subjective Encounter Start Date: 10/27/17 Encounter Start Time: 08:00 Pt seen for followup re: acute cholecystitis. Denies chest pain or shortness of breath. Reports soreness at surgical site. - Objective Resuscitation Status: Resuscitation Status FULL:Full Resuscitation MAR Reviewed: Yes Vital Signs & Weight: Vital Signs (12 hours) Temp Pulse Resp BP BP Pulse Ox 10/27/17 09:30 136/67 10/27/17 09:24 60 136/67 10/27/17 08:03 98.1 F 60 15 127/60 91 L 10/27/17 04:27 94 L 10/27/17 04:02 97.9 F 63 18 131/62 94 L 10/26/17 23:37 97.8 F 98 18 102/54 L 93 L Weight Weight 195 lb I&O: 10/26/17 10/27/17 10/28/17 06:59 06:59 06:59 Intake Total 1575 1825 Output Total 500 300 Balance 1075 1525 Result Diagrams: 10/27/17 04:06 10/27/17 04:06 Additional Labs: Accuchecks 10/27/17 10/26/17 10/26/17 05:57 20:50 17:41 POC Glucose 164 H 205 H 158 H EKG Reviewed by me: Yes (Tele: AV-paced) Phys Exam - Physical Examination Obese HEENT: moist MMs Neck: supple Respiratory: clear to auscultation bilateral Cardiovascular: RRR Gastrointestinal: soft Surgical sites clean Neurological: moves all 4 limbs Psychiatric: normal affect Dx/Plan (1) Acute cholecystitis Code(s): K81.0 - ACUTE CHOLECYSTITIS Status: Acute Comment: s/p cholecystectomy (2) Pancreatitis due to biliary obstruction Code(s): K85.90 - ACUTE PANCREATITIS WITHOUT NECROSIS OR INFECTION, UNSP; K83.1 - OBSTRUCTION OF BILE DUCT Status: Acute Qualifiers: Chronicity: acute Comment: CT abdo pending to r/o pancreatic pathology (3) Atrial fibrillation Code(s): I48.91 - UNSPECIFIED ATRIAL FIBRILLATION Status: Chronic Qualifiers: Atrial fibrillation type: chronic Qualified Code(s): I48.2 - Chronic atrial fibrillation Comment: Apixaban on hold (4) CVA (cerebral vascular accident) Code(s): I63.9 - CEREBRAL INFARCTION, UNSPECIFIED Status: Chronic Qualifiers: CVA mechanism: embolism Comment: No residual deficits (5) Cholelithiasis Code(s): K80.20 - CALCULUS OF GALLBLADDER W/O CHOLECYSTITIS W/O OBSTRUCTION Status: Chronic Qualifiers: Cholelithiasis location: gallbladder Comment: s/p lap cholecystectomy on October 26, 2017 (6) Diabetes mellitus type 2 in obese Code(s): E11.69 - TYPE 2 DIABETES MELLITUS WITH OTHER SPECIFIED COMPLICATION; E66.9 - OBESITY, UNSPECIFIED Status: Chronic Comment: Continue accuchecks, insulin sliding scale (7) Hyperlipidemia Code(s): E78.5 - HYPERLIPIDEMIA, UNSPECIFIED Status: Chronic Qualifiers: Hyperlipidemia type: unspecified Qualified Code(s): E78.5 - Hyperlipidemia , unspecified Comment: continue statin (8) Hypertension Code(s): I10 - ESSENTIAL (PRIMARY) HYPERTENSION Status: Chronic Qualifiers: Hypertension type: essential hypertension Qualified Code(s): I10 - Essential (primary) hypertension Comment: BP controlled. Monitor vital signs, titrate antihypertensives as needed. (9) Hypothyroidism Code(s): E03.9 - HYPOTHYROIDISM, UNSPECIFIED Status: Chronic Comment: continue levothyroxine - Plan * . Review of Systems - Review of Systems Respiratory: negative: Cough, Dry, Shortness of Breath, Hemoptysis, SOB with Excertion, Pleuritic Pain, Sputum, Wheezing Cardiovascular: negative: chest pain, palpitations, orthopnea, paroxysmal nocturnal dyspnea, edema, light headedness Gastrointestinal: Abdominal Pain. negative: Nausea, Vomiting, Diarrhea, Constipation, Melena, Hematochezia - Medications/Allergies Allergies/Adverse Reactions: Allergies Allergy/AdvReac Type Severity Reaction Status Date / Time No Known Allergies Allergy Unverified 10/24/17 19:49 Medications: Current Medications Acetaminophen (Tylenol) 650 mg NJ Q4H PRN PRN Reason: Headache/Fever or Pain Atorvastatin Calcium (Lipitor) 10 mg PO HS [facility] Last Admin: 10/26/17 20:16 Dose: 10 mg Bisacodyl (Dulcolax) 10 mg PO DAILYPRN PRN PRN Reason: Constipation Carvedilol (Coreg) 6.25 mg PO TID MISSY Last Admin: 10/27/17 09:30 Dose: 6.25 mg Clonidine (Catapres) 0.1 mg PO Q4H PRN PRN Reason: Hypertension Last Admin: 10/26/17 10:40 Dose: 0.1 mg Dextrose/Water (Dextrose 50%) 25 gm SLOW IVP PRN PRN PRN Reason: Hypoglycemia Docusate Sodium (Colace) 100 mg PO BID [facility] Last Admin: 10/27/17 10:41 Dose: Not Given Enoxaparin Sodium (Lovenox) 40 mg SC 0900 [facility] Last Admin: 10/27/17 10:41 Dose: Not Given Gabapentin (Neurontin) 300 mg PO DAILY [facility] Last Admin: 10/27/17 09:29 Dose: 300 mg Glucagon (Glucagon) 1 mg IM PRN PRN PRN Reason: Hypoglycemia Hydralazine HCl (Apresoline) 25 mg PO BID [facility] Last Admin: 10/27/17 09:24 Dose: 25 mg Hydralazine HCl (Apresoline) 10 mg SLOW IVP Q4H PRN PRN Reason: Hypertension Last Admin: 10/25/17 12:54 Dose: 10 mg Dextrose/Water (D5w) 1,000 mls @ 0 mls/hr IV .Q0M PRN; As Directed PRN Reason: Hypoglycemia Sodium Chloride (Normal Saline 0.9%) 1,000 mls @ 65 mls/hr IV .[id number] [facility] Last Admin: 10/27/17 09:34 Dose: Not Given Piperacillin Sod/Tazobactam (Sod 3.375 gm/ Sodium Chloride) 100 mls @ 200 mls/ hr IVPB 0300,0900,1500,2100 [facility] Last Admin: 10/27/17 09:31 Dose: 100 mls Acetaminophen 1,000 mg/ Device 100 mls @ 400 mls/hr IVPB Q6HR [facility] Stop: 10/27/17 23:59 Last Admin: 10/27/17 05:47 Dose: 100 mls Insulin Human Lispro (Humalog) 0 units SC .MILD SLIDING SCALE PRN PRN Reason: Mild Correctional Scale Insulin Human Lispro (Humalog) 0 units SC .BEDTIME SLIDING SC PRN PRN Reason: Bedtime Correctional Scale Labetalol HCl (Normodyne) 10 mg SLOW IVP Q4H PRN PRN Reason: SBP Greater Than 180 Levothyroxine Sodium (Synthroid) 112 mcg PO 0600 [facility] Last Admin: 10/27/17 05:45 Dose: 112 mcg Nitroglycerin (Nitro-Bid 2% Ointment) 1 inch TOP Q8HR MISSY Last Admin: 10/27/17 05:45 Dose: 1 inch Ondansetron HCl (Zofran Odt) 4 mg PO Q6H PRN PRN Reason: Nausea/Vomiting Ondansetron HCl (Zofran) 4 mg IVP Q6H PRN PRN Reason: Nausea/Vomiting
--- NOTE | 2017-10-27 11:00 | PRG ---
DATE OF SERVICE: 10/27/2017 SUBJECTIVE: The patient reports she is having difficulty swallowing secondary to pain. This include s both solid food and liquids. OBJECTIVE: VITAL SIGNS: Temperature 97.1, pulse 89, respiratory rate 15, blood pressure 182/99. CHEST: Clear. CARDIOVASCULAR: Regular rate and rhythm. ABDOMEN: Soft and nontender, without organomegaly or masses. LABORATORY DATA: Shows hemoglobin 12.5. Chemistries show glucose 180. ASSESSMENT: 1. Severe reflux esophagitis. 2. Odynophagia secondary to #1. 3. Acute myocardial infarction. RECOMMENDATION: Continue IV PPI.
[2017-10-27] MEDS: traMADol HCl 50 MG TAB PO SCH ×2 (15:43→21:10)
[2017-10-27] MEDS: HumaLOG 300 UNITS/3 ML VIAL SC PRN (15:45)
--- NOTE | 2017-10-27 15:52 | PRG ---
DATE OF SERVICE: 10/27/2017 SUBJECTIVE: The patient is having some soreness after her surgery, but otherwise feeling well. OBJECTIVE: VITAL SIGNS: Temperature 97.4, pulse 60, respiratory rate 16, blood pressure 136/67. CHEST: Clear. CARDIOVASCULAR: Regular rate and rhythm. ABDOMEN: Soft and nontender in the right upper quadrant. LABORATORY DATA AND IMAGING DATA: Shows a white blood cell count of 9.4, hemoglobin of 10, and hemat ocrit of 30. Chemistry shows sodium 132, CO2 18, BUN 23, glucose 163, total bilirubin 7.7, AST 25, A LT of 11, lipase of 89. Abdominal and pelvic CT shows very large pancreatic mass with scattered area s of abnormal enhancement, more so in the periphery. Then, the central portion of the mass and some scattered minimal nodular fat density within the mass and at least 1 small hyperdense nodular focus, small left renal cyst. ASSESSMENT: Large pancreatic head mass. RECOMMENDATIONS: 1. Would need endoscopic ultrasound, probably as an outpatient. 2. Continue recovery from laparoscopic cholecystectomy. 3. CA 19-9.
--- NOTE | 2017-10-27 19:42 | PRG ---
DATE OF SERVICE: 10/27/2017 SUBJECTIVE: Ms. Kelsey is an 82-year-old woman with resolved apparent gallstone pancreatitis. Th e patient is postoperative day #1, status post laparoscopic cholecystectomy with cholangiogram. Toda y, she is awake and alert. She reports adequate pain control. She is tolerating clear liquid diet. Due to abnormal perioperative clinical and radiographic findings, a CT scan of the abdomen and pelvi s was obtained today, which revealed a large pancreatic head mass. I have discussed the significance of this finding with the patient and her family. OBJECTIVE: VITAL SIGNS: Today includes blood pressure 134/62, pulse is 60, respiratory rate is 16, temperature 97.5 degrees Fahrenheit, oxygen saturation is 96% on 2 liters by nasal cannula oxygen. HEENT: Reveals normocephalic and atraumatic. Her pupils are equal, round, reactive to light and acc ommodation. HEART: Reveals regular rate and rhythm, no murmurs or gallops auscultated. CHEST: Lungs clear to auscultation bilaterally. Breathing is regular and unlabored. ABDOMEN: Soft with incisional tenderness to palpation. All incisions remain intact, clean, and dry. NEUROLOGIC: Reveals no focal deficits present. LABORATORY FINDINGS: Includes a CBC with 9400 white blood cells, hemoglobin and hematocrit are stabl e at 10.0 and 30.3 respectively. Platelet count is 279,000. Metabolic profile: Sodium is 132, pota ssium is 3.8, chloride is 105, bicarbonate is 18, BUN is 23, creatinine is 1.02, and glucose is 163. Phosphorus is 3.9, magnesium is 1.6, AST and ALT normal at 25 and 11 respectively. Alkaline phospha tase is 191. Serum lipase is 89. IMPRESSION: 1. Postoperative day #1, status post laparoscopic cholecystectomy. 2. Pancreatic head mass. PLAN: 1. Advance diet and activity as tolerated. 2. Discussed findings of the CT scan with the patient and her family. Radiology is unable to percut aneously biopsy this mass. This patient would; therefore, need endoscopic ultrasound with biopsy per Interventional GI. We will make arrangement to secure this diagnosis once the patient is stable for discharge. Above findings and plan discussed with the patient and her family. They all indicated u nderstand information given. I have answered their questions.
[2017-10-27] MEDS ORDERED: Sodium Chloride 0.9% 1,000 ML IV SCH (20:15)
[2017-10-27] MEDS: Simvastatin 20 MG TAB PO SCH (21:09)
--- NOTE | 2017-10-27 23:37 | PRG ---
DATE OF SERVICE: 10/27/2017 SUBJECTIVE: This is an 82-year-old female postop day #1 status post laparoscopic cholecystectomy. U emilia my evaluation this evening, the patient vocalized no complaint, but did have an episode of hypote nsion earlier in the shift with a systolic blood pressure in the 80s. Hospital Medicine was contacted and the patient did receive a fluid bolus. Otherwise, the patient vocalized no complaint. OBJECTIVE: VITAL SIGNS: Reviewed at bedside. Systolic blood pressure 105, heart rate in the 60s-70s. GENERAL: Well-developed elderly female in no acute distress, resting in bed. CPAP in place. ABDOMEN: Soft, nontender, and nondistended. NEUROLOGIC: No focal deficit is noted. LABORATORY FINDINGS: Cortisol level 32.9. ASSESSMENT AND PLAN: As documented in daily progress note by Dr. Zavala. Continue care as ordered. Continue to monitor. Supportive care per Hospital Medicine.
[2017-10-28] MEDS: Acetaminophen 1,000 MG in Premix Bag 1 BAG IVPB SCH (00:04)
[2017-10-28] MEDS: traMADol HCl 50 MG TAB PO SCH ×4 (03:02→20:59)
[2017-10-28] MEDS: Piperacillin/Tazobactam 3.375 GM in Sodium Chloride 0.9% 100 ML IVPB SCH (03:02)
[2017-10-28] MEDS: Levothyroxine Sodium 112 MCG TAB PO SCH (06:07)
[2017-10-28] MEDS: Nitroglycerin 2% Ointment 1 INCH/1 GM Packet TOP SCH (06:08)
[2017-10-28] MEDS: Sodium Chloride 0.9% 1,000 ML IV SCH ×2 (06:12→16:57)
--- NOTE | 2017-10-28 10:16 | PDOC.PN ---
- Subjective Encounter Start Date: 10/28/17 Encounter Start Time: 08:40 Pt seen for followup re: pancreatic mass. Reports soreness at lap erum sites. Did not sleep well. - Objective Resuscitation Status: Resuscitation Status FULL:Full Resuscitation MAR Reviewed: Yes Vital Signs & Weight: Vital Signs (12 hours) Temp Pulse Resp BP BP Pulse Ox 10/28/17 08:00 97.4 F L 60 20 142/63 H 92 L 10/28/17 03:38 97.5 F L 60 16 143/70 H 93 L Weight Weight 213 lb 1.6 oz I&O: 10/27/17 10/28/17 10/29/17 06:59 06:59 06:59 Intake Total 1825 4274 Output Total 300 200 Balance 1525 4074 Result Diagrams: 10/27/17 04:06 10/27/17 04:06 Additional Labs: Accuchecks 10/28/17 10/27/17 10/27/17 06:09 15:29 10:51 POC Glucose 154 H 193 H 149 H EKG Reviewed by me: Yes (Tele: AV-paced) Phys Exam - Physical Examination Obese HEENT: moist MMs Neck: supple Respiratory: clear to auscultation bilateral Cardiovascular: RRR Gastrointestinal: soft Neurological: moves all 4 limbs Psychiatric: normal affect Skin: no rash Dx/Plan (1) Pancreatic mass Status: Acute Comment: Pt needs interventional GI. (2) Pancreatitis due to biliary obstruction Code(s): K85.90 - ACUTE PANCREATITIS WITHOUT NECROSIS OR INFECTION, UNSP; K83.1 - OBSTRUCTION OF BILE DUCT Status: Acute Qualifiers: Chronicity: acute Comment: CT abdo showed pancreatic mass (3) Atrial fibrillation Code(s): I48.91 - UNSPECIFIED ATRIAL FIBRILLATION Status: Chronic Qualifiers: Atrial fibrillation type: chronic Qualified Code(s): I48.2 - Chronic atrial fibrillation Comment: Apixaban on hold, cardiology service following (resume soon vs continue to hold if biopsy is in next few days) (4) CVA (cerebral vascular accident) Code(s): I63.9 - CEREBRAL INFARCTION, UNSPECIFIED Status: Chronic Qualifiers: CVA mechanism: embolism (5) Diabetes mellitus type 2 in obese Code(s): E11.69 - TYPE 2 DIABETES MELLITUS WITH OTHER SPECIFIED COMPLICATION; E66.9 - OBESITY, UNSPECIFIED Status: Chronic Comment: Continue accuchecks, insulin sliding scale (6) Hyperlipidemia Code(s): E78.5 - HYPERLIPIDEMIA, UNSPECIFIED Status: Chronic Qualifiers: Hyperlipidemia type: unspecified Qualified Code(s): E78.5 - Hyperlipidemia , unspecified Comment: continue statin (7) Hypertension Code(s): I10 - ESSENTIAL (PRIMARY) HYPERTENSION Status: Chronic Qualifiers: Hypertension type: essential hypertension Qualified Code(s): I10 - Essential (primary) hypertension Comment: BP controlled. Monitor vital signs, titrate antihypertensives as needed. (8) Hypothyroidism Code(s): E03.9 - HYPOTHYROIDISM, UNSPECIFIED Status: Chronic Comment: continue levothyroxine - Plan plan discussed w/ family, PT/OT, out of bed/ambulate, DVT proph w/SCDs * . Review of Systems - Review of Systems Respiratory: negative: Cough, Dry, Shortness of Breath, Hemoptysis, SOB with Excertion, Pleuritic Pain, Sputum, Wheezing Cardiovascular: negative: chest pain, palpitations, orthopnea, paroxysmal nocturnal dyspnea, edema, light headedness Gastrointestinal: Abdominal Pain - Medications/Allergies Allergies/Adverse Reactions: Allergies Allergy/AdvReac Type Severity Reaction Status Date / Time No Known Allergies Allergy Unverified 10/24/17 19:49 Medications: Current Medications Acetaminophen (Tylenol) [address] Q4H PRN PRN Reason: Headache/Fever or Pain Bisacodyl (Dulcolax) 10 mg PO DAILYPRN PRN PRN Reason: Constipation Carvedilol (Coreg) 6.25 mg PO TID [facility] Last Admin: 10/27/17 21:08 Dose: Not Given Clonidine (Catapres) 0.1 mg PO Q4H PRN PRN Reason: Hypertension Last Admin: 10/26/17 10:40 Dose: 0.1 mg Dextrose/Water (Dextrose 50%) 25 gm SLOW IVP PRN PRN PRN Reason: Hypoglycemia Docusate Sodium (Colace) 100 mg PO BID [facility] Last Admin: 10/27/17 21:08 Dose: Not Given Enoxaparin Sodium (Lovenox) 40 mg SC 0900 [facility] Last Admin: 10/27/17 12:24 Dose: 40 mg Gabapentin (Neurontin) 300 mg PO DAILY [facility] Last Admin: 10/27/17 09:29 Dose: 300 mg Glucagon (Glucagon) 1 mg IM PRN PRN PRN Reason: Hypoglycemia Hydralazine HCl (Apresoline) 10 mg SLOW IVP Q4H PRN PRN Reason: Hypertension Last Admin: 10/25/17 12:54 Dose: 10 mg Dextrose/Water (D5w) 1,000 mls @ 0 mls/hr IV .Q0M PRN; As Directed PRN Reason: Hypoglycemia Sodium Chloride (Normal Saline 0.9%) 1,000 mls @ 65 mls/hr IV .[id number] [facility] Last Admin: 10/28/17 06:12 Dose: 1,000 mls Insulin Human Lispro (Humalog) 0 units SC .MILD SLIDING SCALE PRN PRN Reason: Mild Correctional Scale Last Admin: 10/27/17 15:45 Dose: 2 unit Insulin Human Lispro (Humalog) 0 units SC .BEDTIME SLIDING SC PRN PRN Reason: Bedtime Correctional Scale Labetalol HCl (Normodyne) 10 mg SLOW IVP Q4H PRN PRN Reason: SBP Greater Than 180 Levothyroxine Sodium (Synthroid) 112 mcg PO 0600 [facility] Last Admin: 10/28/17 06:07 Dose: 112 mcg Ondansetron HCl (Zofran Odt) 4 mg PO Q6H PRN PRN Reason: Nausea/Vomiting Ondansetron HCl (Zofran) 4 mg IVP Q6H PRN PRN Reason: Nausea/Vomiting Simvastatin (Zocor) 20 mg PO HS [facility] Last Admin: 10/27/17 21:09 Dose: 20 mg Tramadol HCl (Ultram) 50 mg PO 0300,0900,1500,2100 [facility] Last Admin: 10/28/17 03:02 Dose: 50 mg
[2017-10-28] MEDS: Enoxaparin Sodium 40 MG/0.4 ML SYRINGE SC SCH (10:18)
[2017-10-28] MEDS: Carvedilol 6.25 MG TAB PO SCH ×3 (10:19→20:59)
[2017-10-28] MEDS: Docusate 100 MG CAP PO SCH ×2 (10:19→21:00)
[2017-10-28] MEDS: Gabapentin 300 MG CAP PO SCH (10:19)
[2017-10-28] MEDS: HumaLOG 300 UNITS/3 ML VIAL SC PRN ×2 (11:53→18:09)
--- NOTE | 2017-10-28 12:35 | PRG ---
DATE OF SERVICE: 10/28/2017 SUBJECTIVE: The patient is eating somewhat and her abdominal discomfort is continuing to improve. S he has had no nausea, vomiting, and they are not getting her out of bed. OBJECTIVE: VITAL SIGNS: Temperature 97.5, pulse 60, respiratory rate 16, blood pressure 143/70. CHEST: Clear. CARDIOVASCULAR: Regular rate and rhythm. ABDOMEN: Soft and nontender without organomegaly or masses. LABORATORY DATA: Shows no new laboratory data. ASSESSMENT: 1. Pancreatic mass. 2. Status post cholecystectomy. RECOMMENDATIONS: Begin to advance diet. If the patient has any further episodes of pancreatitis, an d then may need inpatient transfer , if not, hopefully, we can get this lady to the outpatient [facility] and set up EUS as an outpatient.
[2017-10-28] MEDS ORDERED: Furosemide 20 MG/2 ML VIAL SLOW IVP SCH (17:45)
--- NOTE | 2017-10-28 19:49 | PRG ---
DATE OF SERVICE: 10/28/2017 ATTENDING PHYSICIAN: Rajan Santana MD SUBJECTIVE: Ms. Kelsey is postoperative day #2 status post laparoscopic cholecystectomy. At that time, pancreatic mass was discovered. She has been on the telemetry floor. She had an episode of h ypotension last night, which responded to a normal saline bolus. Otherwise, she has been stable. OBJECTIVE: VITAL SIGNS: Temperature 97.4, pulse 60, respirations 20, O2 sat 92% on room air, blood pressure 142 /63. HEENT: Atraumatic, normocephalic. PULMONARY: Respirations even and unlabored. No respiratory distress. CARDIOVASCULAR: Regular rate and rhythm. AV paced. ABDOMEN: Soft. Mild incisional tenderness and nondistended. No signs of infection at laparoscopic surgical incisions. EXTREMITIES: Moves all extremities well. NEUROLOGIC: GCS 15. A and O x3. ASSESSMENT: 1. Status post laparoscopic cholecystectomy. 2. Pancreatic mass, incidental finding during operative procedure. 3. Tolerating regular diet. PLAN: 1. The patient is cleared for discharge from a surgical perspective. She is to follow up with inter ventional photonics engineering technician. At this time, the patient and family are discussing if she would prefe r to go to [place] or [place] for further testing with interventional photonics engineering technician. 2. Rehabilitation referral made. 3. Surgery will continue to follow with you. The patient was seen and examined with Dr. Santana, who agrees with plan.
[2017-10-28] MEDS: Simvastatin 20 MG TAB PO SCH (21:00)
--- NOTE | 2017-10-28 21:49 | PRG ---
DATE OF SERVICE: 10/28/2017 SUBJECTIVE: This is an 82-year-old female postoperative day #2, status post laparoscopic cholecystec azucena with incidental finding of pancreatic mass. The patient has been doing well postoperatively. T ashley, she states that her pain is better controlled. GI is advancing her diet. A rehab screen has b een put into place. Upon my evaluation, the patient states that her pain is improved this evening. OBJECTIVE: VITAL SIGNS: Reviewed. GENERAL: The patient is resting in bed in no acute distress. Breathing is nonlabored. She is weari ng her CPAP. ABDOMEN: Soft with mild tenderness near the incisional sites. GENITOURINARY: No signs of guarding, rigidity or peritonitis. ASSESSMENT AND PLAN: As documented in daily progress note. Continue care as ordered. Continue to m onitor. Follow diet tolerance. The patient and family are still deciding on whether or not they wan t to go to [place] or [place] for interventional GI.
[2017-10-29] MEDS: traMADol HCl 50 MG TAB PO SCH ×3 (03:56→14:58)
[2017-10-29] MEDS: Levothyroxine Sodium 112 MCG TAB PO SCH (06:11)
[2017-10-29] MEDS: Carvedilol 6.25 MG TAB PO SCH ×2 (08:30→14:58)
[2017-10-29] MEDS: Enoxaparin Sodium 40 MG/0.4 ML SYRINGE SC SCH (08:31)
[2017-10-29] MEDS: HumaLOG 300 UNITS/3 ML VIAL SC PRN ×2 (08:31→11:53)
[2017-10-29] MEDS: Docusate 100 MG CAP PO SCH (08:31)
[2017-10-29] MEDS: Gabapentin 300 MG CAP PO SCH (08:31)
[2017-10-29] MEDS ORDERED: Furosemide 20 MG/2 ML VIAL SLOW IVP SCH (10:15)
--- NOTE | 2017-10-29 11:37 | PRG ---
DATE OF SERVICE: 10/29/2017 The patient feeling much better today. She is eating well, bowels are moving normally. She is getti ng up out of bed more. OBJECTIVE: VITAL SIGNS: Temperature 96.8, pulse 64, respiratory rate 18, blood pressure 159/97. CHEST: Clear. CARDIOVASCULAR: Regular rate and rhythm. ABDOMEN: Slightly sore, but otherwise benign. LABORATORY DATA: Shows no chemistries, CBC shows a hemoglobin of 10, hematocrit of 30. ASSESSMENT: 1. Pancreatic mass. 2. Status post cholecystectomy. RECOMMENDATIONS: Outpatient workup once the patient recovers from surgery.
[2017-10-29 12:03] VITALS: TEMP 97.6
[2017-10-29 12:07] VITALS: BP 148/66
--- NOTE | 2017-10-29 12:26 | PRG ---
DATE OF SERVICE: 10/29/2017 SUBJECTIVE: Ms. Kelsey is an 82-year-old woman who is postoperative day #3 status post laparoscop ic cholecystectomy with an abnormal cholangiogram, which revealed an obstructive distal common bile d uct. I have follow up CT scan of the abdomen and pelvis revealed a large pancreatic head mass. Meanwhile, the patient reports good pain control. She is tolerating a clear liquid diet without any problems. She is having normal bowel and urinary function. OBJECTIVE: VITAL SIGNS: Today includes blood pressure 157/97, pulse is 64, respiratory rate is 18, temperature 96.8 degrees Fahrenheit, oxygen saturation is 91% on room air. HEENT: Reveals normocephalic and atraumatic. Pupils are equal, round, and reactive to light and acc ommodation. Extraocular muscles are intact bilaterally. She has no sclerae icterus present. Oral m ucosa is pink and moist. No lesions are noted. NECK: Supple. No palpable lymphadenopathy or thyromegaly present. HEART: Reveals regular rate and rhythm. No murmurs or gallops auscultated. CHEST: Lungs clear to auscultation bilaterally. Breathing regular and unlabored. ABDOMEN: Soft and moderately distended. All incisional wounds remain intact, clean, and dry. She h as no gross rebound tenderness. NEUROLOGIC: Today reveals no focal deficits present. IMPRESSION: 1. Postoperative day 3, status post laparoscopic cholecystectomy. 2. Pancreatic head neoplasm. 3. Resolved apparent gallstone pancreatitis. PLAN: The patient is stable for discharge to inpatient rehabilitation today. She follows up with me in 2 weeks in the Surgery Clinic. I have made arrangement for the patient to see Dr. Negro Gibbons an interventional supervisor painting department in [place] for endoscopic biopsy of the pancreatic head mass. That appointment is being arranged th [facility] Dr. Gibbons's office. Above findings and plan discussed with the patient, her daughter by telephone conversation and france mix, who was present at bedside. They all indicated understanding of information provided. I have answered all their questions. The patient has expressed gratitude for the care rendered to her during this hospitalization and surgery.
--- NOTE | 2017-10-29 13:25 | DIS ---
DATE OF ADMISSION: 10/24/2017 DATE OF DISCHARGE: 10/29/2017 PRIMARY CARE PHYSICIAN: Dr. Richie Quiros. DISCHARGE DIAGNOSES: 1. Recurrent pancreatitis. 2. Acute cholecystitis. 3. Pancreatic head mass. 4. Physical deconditioning. CONDITION OF PATIENT ON THE DAY OF DISCHARGE: Stable. I assessed Ms. Kelsey on the day of discha rge. She denies any chest pain or shortness of breath. Vital signs are stable. S1 and S2 are heard , regular. Lungs are clear to auscultation bilaterally. CONSULTATIONS DURING THIS HOSPITALIZATION: 1. Cardiology, Dr. Kaur. 2. Gastroenterology, Dr. Manny Lau. 3. General Surgery, Dr. Brain Zavala. DISCHARGE MEDICATIONS: Apixaban 5 mg 2 times a day, Coreg 6.25 mg 3 times a day, gabapentin 300 mg d aily, hydralazine 25 mg 2 times a day, levothyroxine 112 mcg daily, lovastatin 40 mg daily, metformin 850 mg 2 times a day. HOSPITAL COURSE: Ms. Kelsey is a pleasant 82-year-old lady who was admitted to [facility] for recurrent pancreatitis, likely secondary to gallstones. She was transferred from an outside facility after the surgeon there decided that she needed to have Cardiology clearance rosangela or to cholecystectomy. She was seen by General Surgery and Cardiology services at this facility. 2D echocardiogram on 10/25/2017 showed left ventricular ejection fraction of 50%-55%, restrictive filli ng pattern and a normal right ventricular size and function. She went on to have cholecystectomy on 10/26/2017. Cholangiogram done during surgery showed abnormal architecture of the pancreatic head an d duodenum. She had CT scan of the abdomen and pelvis, which showed a very large pancreatic head mas s with scattered areas of abnormal enhancement. She was referred by General Surgery Service to see Adis Gibbons, intervention subsurface augmentee operator in [place], for endoscopic biopsy of the pancreatic head mass. She was deconditioned during this hospitalization. She is being discharged to inpatient rehabilitati on at [facility]. Her CA19-9 antigen level was 27 during this hospitalization. Her Eliquis is being resumed on the day of discharge. Many thanks for allowing me to participate in your patient's care. Please feel free to contact me wi th any questions or concerns. DISCHARGE DESTINATION: [facility]. TOTAL AMOUNT OF TIME SPENT COORDINATING THIS DISCHARGE: 38 minutes.
[2017-10-29] MEDS ORDERED: metFORMIN 850 MG TAB PO SCH (21:00)
[2017-10-29] MEDS ORDERED: Apixaban 5 MG TAB PO SCH (21:00)
== END 2017-10-29 15:59 | DRG 417 ==
LOC: ERS 14:57 → 2NO 16:05
PROVIDERS: ADMIT Emergency Medicine; ATTEND Emergency Medicine
PROC: 0FT44ZZ Resection of Gallbladder, Percutaneous Endoscopic Approach (ICD-10-PCS; principal; 2017-10-26)
PROC: BF110ZZ Fluoroscopy of Biliary and Pancreatic Ducts using High Osmolar Contrast (ICD-10-PCS; 2017-10-26)
DX: K80.00 Calculus of gallbladder with acute cholecystitis without obstruction (principal); K85.10 Biliary acute pancreatitis without necrosis or infection; I47.2 Ventricular tachycardia; I48.2 Chronic atrial fibrillation; K86.1 Other chronic pancreatitis; I95.2 Hypotension due to drugs; E11.9 Type 2 diabetes mellitus without complications; E03.9 Hypothyroidism, unspecified; E78.5 Hyperlipidemia, unspecified; I10 Essential (primary) hypertension; K86.9 Disease of pancreas, unspecified; E66.9 Obesity, unspecified; Z86.73 Personal history of transient ischemic attack (TIA), and cerebral infarction without residual deficits; Z79.84 Long term (current) use of oral hypoglycemic drugs; Z79.01 Long term (current) use of anticoagulants; Z79.899 Other long term (current) drug therapy; Z95.0 Presence of cardiac pacemaker; T42.6X5A Adverse effect of other antiepileptic and sedative-hypnotic drugs, initial encounter; T40.2X5A Adverse effect of other opioids, initial encounter
CPT/HCPCS: 36415; 36416; 47532; 74178; 80048; 80076; 81001; 82150; 82533; 83690; 83735; 84100; 85025; 86301; 87086; 88304; 93005; 93306; 96360; A4216; G8981-GP-CJ; G8982-GP-CI; G8987-GO-CK; G8988-GO-CI; J0131; J0360; J1170; J1650; J1940; J2001; J2250; J2405; J2543; J2704; J3010; J7050; Q9961

== ENCOUNTER 2018-05-20 09:10 | Outpatient (CLI) | payer MEDICARE ==
[2018-05-20] MEDS ORDERED: ISOVUE-370 76%-LOCM 1 ML ONE (09:46)
--- NOTE | 2018-05-20 11:47 | CT ---
CT ANGIO NECK: Technique: Multiple axial tomograms were obtained through the neck with IV enhancement in the arteria l phase following angio protocol with multiplanar reconstruction and 3D post processing. Indications: Stenosis of bilateral carotid arteries. History of outside carotid doppler study showing evidence of stenosis. There is a history of prior bilateral carotid endarterectomy many years ago. FINDINGS: Common origin of the aortic arch of the innominate artery and left carotid artery. No evidence of norman nosis at the arch. The right common carotid is unremarkable with mild vascular sclerotic change. There is calcified plaque and soft plaque in the right bulb extending into the right ICA. Mild lumina l narrowing of the distal right common carotid at the bifurcation, not hemodynamically significant by NASCET criteria. The bulb is patent and generous in size. There is peripheral atherosclerotic change but no focal stenosis. The right ICA above the bulb is unremarkable. There is severe stenosis at the origin of the right external carotid artery with constitution of mult iple right external carotid branches. The left common carotid is unremarkable with mild atherosclerotic change. There is tortuosity of the left common carotid just proximal to the bulb and there is a focal area of mild luminal narrowing which does not appear hemodynamically significant. The carotid bulb is patent with mild peripheral atherosclerotic calcification. The left ICA above the bulb is patent and unrema rkable. Left external carotid artery is unremarkable. Both vertebral arteries are patent with the left being slightly dominant. Basilar arteries are visual ized and appears unremarkable. No soft tissue abnormality identified. IMPRESSION: There is evidence of bilateral endarterectomy with widely patent carotid bulbs bilaterally. Mild athe rosclerotic change is seen at the bulb on both sides, however, no evidence of hemodynamically signifi cant stenosis identified in either common carotid or internal carotid artery. High grade stenosis at origin of the right external carotid artery incidentally noted. POS: CHAYO
== END 2018-05-20 09:11 | disposition home or self-care (01) ==
LOC: BICCT 09:10
PROVIDERS: ATTEND Internal Medicine Cardiovascular Disease
DX: I65.23 Occlusion and stenosis of bilateral carotid arteries (principal); Z98.890 Other specified postprocedural states
CPT/HCPCS: 70498; 82565

== ENCOUNTER 2018-05-30 09:15 | Outpatient (CLI) | payer MEDICARE ==
[2018-05-30] MEDS ORDERED: Iopamidol 370 76% 100 ML VIAL ONE (09:43)
--- NOTE | 2018-05-30 11:32 | CT ---
CT ARTERIOGRAM NECK WITH IV CONTRAST AND 3D MIP IMAGING: HISTORY: Carotid occlusion. Prior endarterectomy. Vascular disease. FINDINGS: Small amount of pericardial fluid at the superior pericardial reflection is apparent on the inferior- most images. Left subclavian cardiac electronic device partially visualized. There is a bovine origin of the great vessels at the aortic arch with mild calcification. Good flow into each carotid and vertebral arterial system. There are postoperative changes at each carotid bifurcation, consistent with carotid endarterectomies . The common carotid and internal carotid arteries are widely patent. Left external carotid artery is patent. Right external carotid artery is occluded at the origin, with reconstitution distally. C alcification is apparent within the intracranial carotid siphons. IMPRESSION: 1. Bilateral carotid endarterectomy. Internal carotid arteries are widely patent. 2. 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 POS: CHAYO
== END 2018-05-30 09:16 | disposition home or self-care (01) ==
LOC: CT 09:15
PROVIDERS: ATTEND Internal Medicine Cardiovascular Disease
DX: I65.23 Occlusion and stenosis of bilateral carotid arteries (principal)
CPT/HCPCS: 70498; 82565

== ENCOUNTER 2023-07-29 12:45 | Outpatient (CLI) | payer MEDICARE ==
[~2023-07-29 12:45] MED LIST: Iopamidol 370 76% 100 ML VIAL ONE
== END 2023-07-29 12:46 | disposition home or self-care (01) ==
LOC: CT 12:45
PROVIDERS: ATTEND Thoracic Surgery (Cardiothoracic Vascular Surgery)
DX: I65.23 Occlusion and stenosis of bilateral carotid arteries (principal)
CPT/HCPCS: 70498; 82565; Q9967